=== PATIENT | female | born 1930 | race Caucasian/White ===

== ENCOUNTER 2016-11-09 05:12 | Emergency (ER) | payer OTHER ==
[2016-11-09 05:48] LABS: ABSOLUTE NEUTROPHIL COUNT 3.3 K/mm3 (1.8-7.7); BASO % 0.7 % (0.2-1.0); EOS # 0.1 (0.0-0.5); EOS % 1.8 % (0.9-2.9); HEMATOCRIT 30.6 % (37.0-47.0); HEMOGLOBIN 9.6 gm/l (12.0-16.0); IMM NEUT% 0.2 % (0-1); LYMPH # 1.6 (1.0-4.8); LYMPH % 28.8 % (15-45); MEAN CORPUSCULAR HEMOGLOBIN 31.4 pg (27.0-31.0); MEAN CORPUSCULAR HGB CONC 31.4 g/dl (33.0-37.0); MEAN PLATELET VOLUME 10.2 fl (7.4-10.4); MONO # 0.5 (0.0-0.8); MONO % 9.1 % (4-12); NEUT % 59.4 % (43-75); PLATELET COUNT 195 K/mm3 (130-400); RED CELL DISTRIBUTION WIDTH 12.5 % (11.5-14.5)
[2016-11-09 06:04] LABS: TROPONIN I 0.01 ng/ml (0.0-0.06)
[2016-11-09 06:08] LABS: CKMB ISOENZYME 3.1 ng/ml (0.6-6.3)
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
== END 2016-11-09 12:38 | disposition home or self-care (01) ==
LOC: ED 05:12
DX: R07.9 Chest pain, unspecified (principal); I10 Essential (primary) hypertension; G30.9 Alzheimer's disease, unspecified; F02.80 Dementia in other diseases classified elsewhere, unspecified severity, without behavioral disturbance, psychotic disturbance, mood disturbance, and anxiety

== ENCOUNTER 2016-11-15 13:23 | Emergency (ER) | payer OTHER ==
--- NOTE | 2016-11-15 14:09 | CT ---
HEAD CT WITHOUT CONTRAST HISTORY: Acute mental status change. No intravenous contrast administered. Contiguous axial images acquired from skull base to vertex. COMPARISON:None. BRAIN VOLUME: Mild to moderate volume loss commensurate with patient age. VENTRICULAR SIZE: Mild ventriculomegaly without jung hydrocephalus. FOCAL MASS EFFECT:None. WHITE MATTER: Diffuse periventricular white matter hypoattenuation of moderately severe extent, likely related to microvascular disease. ACUTE INTRACRANIAL HEMORRHAGE:None. INTRACRANIAL VASCULATURE: Moderate cavernous carotid artery calcifications. CALVARIUM:Grossly intact. Findings of bilateral temporomandibular joint degeneration. VISIBLE PARANASAL SINUSES AND MASTOID AIR CELLS: Dependent material within the right maxillary sinus, correlate for sinusitis. ORBITS: Status post cataract surgery. IMPRESSION: Findings of moderately severe microvascular disease without focal mass effect or acute intracranial hemorrhage. Evidence of intracranial atherosclerotic disease. Right maxillary sinusitis. Status post cataract surgery. Results were electronically transmitted to the electronic medical record at 11/15/2016 at 1406 hours.
[2016-11-15 14:46] LABS: ABSOLUTE NEUTROPHIL COUNT 3.8 K/mm3 (1.8-7.7); BASO % 0.6 % (0.2-1.0); EOS # 0.1 (0.0-0.5); EOS % 1.3 % (0.9-2.9); HEMATOCRIT 33.8 % (37.0-47.0); HEMOGLOBIN 10.5 gm/l (12.0-16.0); IMM NEUT% 0.1 % (0-1); LYMPH # 2.3 (1.0-4.8); LYMPH % 34.8 % (15-45); MEAN CELL VOLUME 98.8 fl (81.0-99.0); MEAN CORPUSCULAR HEMOGLOBIN 30.7 pg (27.0-31.0); MEAN CORPUSCULAR HGB CONC 31.1 g/dl (33.0-37.0); MEAN PLATELET VOLUME 10.5 fl (7.4-10.4); MONO # 0.5 (0.0-0.8); MONO % 7.1 % (4-12); NEUT % 56.1 % (43-75); PLATELET COUNT 187 K/mm3 (130-400); RED CELL DISTRIBUTION WIDTH 12.5 % (11.5-14.5)
[2016-11-15 14:56] LABS: I-STAT CREATININE 1.2 mg/dL (0.6-1.3)
[2016-11-15 15:18] LABS: VENOUS BLOOD GAS BASE EXCESS -1.9 mmol/L (-2.0-2.0); VENOUS BLOOD GAS HCO3 24.3 mmol/L (22.0-27.0)
[2016-11-15 15:41] LABS: URINE BILIRUBIN NEGATIVE (NEGATIVE); URINE BLOOD TRACE (NEGATIVE); URINE GLUCOSE (UA) NEGATIVE (NEGATIVE); URINE LEUKOCYTE ESTERASE TRACE (NEGATIVE); URINE NITRITE POSITIVE (NEGATIVE); URINE PROTEIN TRACE (NEGATIVE); URINE UROBILINOGEN NORMAL (0-1 mg/dl)
[2016-11-15 15:49] LABS: URINE APPEARANCE SL CLOUDY; URINE COLOR DARK YELLOW; URINE EPITHELIAL CELLS 0-2 /hpf; URINE RBC 0-2 /hpf
[2016-11-15 15:50] LABS: URINE BACTERIA 3+
[2016-11-15] MEDS ORDERED: SODIUM CHLORIDE 0.9% 1,000 ML ONE (15:52)
[2016-11-15 16:11] LABS: ALB/GLOB RATIO 1.2 (>1.0); ALBUMIN 3.5 gm/dL (3.5-5.7); CALCIUM 8.9 mg/dL (8.6-10.3)
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
== END 2016-11-15 19:17 | disposition home or self-care (01) ==
LOC: ED 13:23
DX: R41.82 Altered mental status, unspecified (principal); E86.0 Dehydration; I50.9 Heart failure, unspecified; I10 Essential (primary) hypertension; G30.9 Alzheimer's disease, unspecified; F02.80 Dementia in other diseases classified elsewhere, unspecified severity, without behavioral disturbance, psychotic disturbance, mood disturbance, and anxiety
CPT/HCPCS: 82803; 85025; 87086; 80047; 80053; 87186; 81001; 71010; 70450; 99284 ×2; 96360; 93005; J7030

== ENCOUNTER 2016-12-14 02:11 | Emergency (ER) | payer OTHER ==
[2016-12-14 02:59] LABS: URINE APPEARANCE CLOUDY; URINE BILIRUBIN NEGATIVE (NEGATIVE); URINE BLOOD NEGATIVE (NEGATIVE); URINE COLOR LIGHT YELLOW; URINE GLUCOSE (UA) NEGATIVE (NEGATIVE); URINE LEUKOCYTE ESTERASE 1+ (NEGATIVE); URINE NITRITE POSITIVE (NEGATIVE); URINE PROTEIN NEGATIVE (NEGATIVE); URINE UROBILINOGEN NORMAL (0-1 mg/dl)
[2016-12-14 02:59] LABS: ABSOLUTE NEUTROPHIL COUNT 2.6 K/mm3 (1.8-7.7); BASO % 0.5 % (0.2-1.0); EOS # 0.2 (0.0-0.5); EOS % 3.9 % (0.9-2.9); HEMOGLOBIN 8.7 gm/l (12.0-16.0); IMM NEUT% 0.4 % (0-1); LYMPH # 2.3 (1.0-4.8); LYMPH % 40.3 % (15-45); MEAN CELL VOLUME 98.6 fl (81.0-99.0); MEAN CORPUSCULAR HEMOGLOBIN 30.6 pg (27.0-31.0); MEAN CORPUSCULAR HGB CONC 31.1 g/dl (33.0-37.0); MEAN PLATELET VOLUME 10.6 fl (7.4-10.4); MONO # 0.5 (0.0-0.8); MONO % 8.9 % (4-12); PLATELET COUNT 195 K/mm3 (130-400); RED CELL DISTRIBUTION WIDTH 13.2 % (11.5-14.5)
[2016-12-14 03:17] LABS: ALB/GLOB RATIO 1.1 (>1.0); ALBUMIN 3.2 gm/dL (3.5-5.7); CALCIUM 8.2 mg/dL (8.6-10.3)
[2016-12-14 03:21] LABS: TROPONIN I 0.01 ng/ml (0.0-0.06)
[2016-12-14] MEDS ORDERED: ASPIRIN CHEWTAB 81 MG TABLET ONE (03:21)
[2016-12-14] MEDS ORDERED: ACETAMINOPHEN 500 MG TABLET ONE (03:21)
[2016-12-14 03:22] LABS: URINE WBC 40-60 /hpf
[2016-12-14 03:23] LABS: URINE BACTERIA 3+
[2016-12-14 03:25] LABS: CKMB ISOENZYME 3.9 ng/ml (0.6-6.3)
[2016-12-14] MEDS ORDERED: ACETAMINOPHEN 325 MG TABLET ONE (03:25)
[2016-12-14 04:55] LABS: ARTERIAL BLOOD GAS BASE EXCESS -6.2 mmol/L (-2.0-2.0); ARTERIAL BLOOD GAS HCO3 18.7 mmol/L (22.0-28.0); ARTERIAL BLOOD GAS PCO2 34.8 mmHg (35.0-45.0); ARTERIAL BLOOD GAS PO2 98.3 mmHg (80.0-90.0); ARTERIAL BLOOD GAS pH 7.349 (7.350-7.450)
[2016-12-14] MEDS ORDERED: DIPHENHYDRAMINE HCL 50 MG/1 ML VIAL ONE (05:07)
[2016-12-14] MEDS ORDERED: HALOPERIDOL LACTATE 5 MG/1 ML AMP ONE (05:07)
[2016-12-14] MEDS ORDERED: CEFTRIAXONE 1 GRAM DUPLEX 50 ML IV ONE (05:08)
[2016-12-14] MEDS ORDERED: SODIUM CHLORIDE 0.9% 250 ML IV ONE (05:08)
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
== END 2016-12-14 09:52 | disposition home or self-care (01) ==
LOC: ED 02:11
DX: N39.0 Urinary tract infection, site not specified (principal); R07.9 Chest pain, unspecified; R41.0 Disorientation, unspecified; I11.0 Hypertensive heart disease with heart failure; I50.9 Heart failure, unspecified; I10 Essential (primary) hypertension; G30.9 Alzheimer's disease, unspecified; F02.80 Dementia in other diseases classified elsewhere, unspecified severity, without behavioral disturbance, psychotic disturbance, mood disturbance, and anxiety